=== PATIENT | male | born 1960 | race Caucasian/White ===

== ENCOUNTER 2018-05-02 18:01 | Emergency (ER) | payer OTHER ==
[~2018-05-02] VITALS: Ht 182.9 cm; Wt 81.6 kg
[2018-05-02 18:17] VITALS: BP 133/91
[2018-05-02] MEDS ORDERED: Tetanus/Diptheria/Pertussis Vaccine 0.5ml Syr IM ONE (18:30)
[2018-05-02] MEDS ORDERED: Lidocaine 1% Plain 30 ml INJ ONE (18:30)
[2018-05-02] MEDS ORDERED: Bacitracin Oint UD TOPIC ONE ×2 (18:30→20:29)
[2018-05-02] MEDS ORDERED: Ketorolac 30mg Inj IM ONE (18:30)
--- NOTE | 2018-05-02 18:34 | Emergency Room Report ---
History of Present Illness General Chief Complaint: Laceration Source: Patient Present Illness HPI 57-year-old male patient presents ER complaining of laceration on his left hand status post injury less than an hour ago. Reports that he was cleaning a "sprain" when it cut his left hand. Reports he is right-hand dominant. Reports bleeding well controlled with gauze at this time. Reports laceration on dorsum of left hand and middle finger and small laceration on dorsum of left hand near index finger. Reports does not know tetanus vaccination status. Denies taking any medications for pain. Denies fever, chest pain, shortness of breath. Allergies: Coded Allergies: No Known Allergies (Unverified , 05/02/18) Patient History Past Medical History: see triage record Reviewed Nursing Documentation: PMH: Agreed; PSxH: Agreed Nursing Documentation-PMH Past Medical History: No Stated History Review of Systems All Other Systems: negative except mentioned in HPI Physical Exam Vital Signs Date Time Temp Pulse Resp B/P (MAP) Pulse Ox O2 Delivery O2 Flow Rate FiO2 05/02/18 18:07 98.1 67 20 133/91 98 Room Air Sp02 EP Interpretation: reviewed, normal General Appearance: well appearing, no apparent distress, alert, GCS 15, non- toxic Head: normocephalic, atraumatic Eyes: bilateral eye normal inspection, bilateral eye PERRL ENT: hearing grossly normal, normal pharynx, no angioedema, normal voice, uvula midline, moist mucus membranes Neck: full range of motion Respiratory: lungs clear, normal breath sounds, no rhonchi, no respiratory distress, no accessory muscle use, no wheezing, speaking full sentences Cardiovascular #1: regular rate, rhythm, no edema Cardiovascular #2: 2+ radial (R), 2+ radial (L) Musculoskeletal: back normal, digits/nails normal, gait/station normal, normal range of motion, non-tender, other - NVI, cap refill < 2seconds Neurologic: alert, oriented x3, responsive, motor strength/tone normal, sensory intact Psychiatric: mood/affect normal Skin: laceration - dorsum of left hand, middle finger distal to MCP joint: 5 cm laceration, deep, active bleeding, no pulsatile bleeding, partial tendon rupture visualized, no surrounding erythema or edema; dorsum of left hand near MCP of the index finger: 2 cm superficial laceration noted, no active bleeding or drainage, no surrounding erythema or edema Medical Decision Making PA Attestation Dr. Man is my supervising Physician whom patient management has been discussed with. Diagnostic Impression: Primary Impression: Open fracture of phalanx of finger of left hand Additional Impressions: Laceration Injury of tendon of finger ER Course Pt presents to ED c/o laceration on dorsum of left hand at index finger and middle finger near MCP joint. DDX considered but are not limited to laceration, abrasion, contusion, cellulitis, sprain, strain, fracture, retained FB, tendon rupture. VITAL SIGNS are WNL, patient is afebrile ED INTERVENTIONS: x-ray shows fracture of the proximal phalanx of the left hand. Preliminary reading. Consider open fracture, will provide patient with IV Ancef while in the ER. Provided with TDap. Provided with pain medication. Contacted hand specialists Dr. Collin Suh who was gracious enough to consult on this case. See his note. Provided with morphine for pain. tendon and lacerations repaired by Dr. Suh. Bacitracin applied. Wounds cleaned and dressed. patient procedure well without complications. Patient' instructed to follow with Dr. Suh in one week for suture removal and follow-up care. Call to schedule appointment. Contact information provided. Patient splinted with Colles splint per Dr. Suh request. Checked by me afterwards with good alignment and neurovascularly intact. ER precautions given. follow up with primary care provider to discuss referral to paid search specialist finger fracture. DISCHARGE: Rx provided for Keflex Rx provided for Bactrim Rx provided for Bacitracin Rx provided for [place]. CURES reviewed. SE drowsiness, do not take prior to drinking, driving, operating heavy machinery. At this time pt is stable for d/c to home. Patient resting comfortably, in no acute distress, nontoxic appearing, talking without difficulty. Will provide with patient care instructions and any necessary prescriptions. Patient to take medication as instructed. Care plan and follow-up instructions provided. Work note provided to patient. Patient questions asked and answered. Patient instructed to follow-up with Dr. Suh for wound check and suture removal. ER precautions given. Patient instructed to return to ER immediately for any new or worsening of symptoms. - Please note that this Emergency Department Report was dictated using [employer] technology software, occasionally this can lead to erroneous entry secondary to interpretation by the dictation equipment. Other X-Ray Diagnostic Results Other X-Ray Diagnostic Results : X-Ray ordered: left hand # of Views/Limited Vs Complete: 3 View Indication: Pain EP Interpretation: Yes PA Xray: Interpretation reviewed, by supervising MD, and agrees with findings. Interpretation: no dislocation, no soft tissue swelling, other - fracture Impression: Other - nondisplaced fracture of proximal phalanx of the middle finger PA Scribe Text Dylan Chand PA-C Last Vital Signs Date Time Temp Pulse Resp B/P (MAP) Pulse Ox O2 Delivery O2 Flow Rate FiO2 05/02/18 18:17 98.1 20 133/91 98 Room Air 05/02/18 18:07 67 Status: improved Disposition: HOME, SELF-CARE Condition: Stable Scripts Hydrocodone Bit/Acetaminophen 5-325* (NORCO 5-325*) 1 Each Tablet 1 TAB ORAL Q6H PRN for For Pain, #10 TAB 0 Refills Prov: Carlos Chand.Loretta 05/02/18 Trimethoprim/Sulfamethoxazole 160/800* (BACTRIM DS TABLET*) 1 Each Tablet 1 TAB ORAL TWICE A DAY for 7 Days, #14 TAB Prov: Carlos Chand 05/02/18 Cephalexin* (KEFLEX*) 500 Mg Capsule 500 MG ORAL EVERY 12 HOURS, #14 CAP 0 Refills Prov: Carlos Chand 05/02/18 Bacitracin/Polymyxin B Sulfate (BACITRACIN-POLYMYXIN OINTMENT) 28.35 Gm Oint...g. 1 APPLIC TP BID, #28 GM Prov: Carlos Chand 05/02/18 Patient Instructions: Finger Fracture, Fsyp-iq-Hent, Laceration Care, Adult, Tendon Injury, Tendon Repair Additional Instructions: Patient instructed to follow-up with Dr. Suh in 7 days for wound check and suture removal. Call his office to schedule appointment. Take medications as directed. Keep wound clean and dry. Patient instructed to follow up with primary care provider and discuss further referral to orthopedics/physical therapy/pain management as needed for finger fracture. If unable to followup with PCP, followup with orthopedic urgent care in 5-7 days , call to schedule appointment. Patient instructed on RICE method: rest, ice, compression, elevation. Patient instructed to NWB. Take medications as directed. Do not drink, drive, or operate heavy machinery prior to taking [place] pain medication. Patient questions asked and answered. ER precautions given, patient instructed to return to ER immediately for any new or worsening of symptoms. [facility] [address] [address] [facility], [id number] [email or web address] Carlos Chand May 02, 2018 18:34
[2018-05-02] MEDS ORDERED: ceFAZolin 1gm/50ml Premix 50 ML IV ONE (18:45)
[2018-05-02] MEDS ORDERED: Lidocaine 1% 10mg/ml/Epi 0.005mg/ml 30ml vial INJ ONE (19:45)
[2018-05-02] MEDS ORDERED: Morphine Sulfate 2mg/ml Inj IVP ONE (19:45)
[2018-05-02] MEDS ORDERED: NORCO 5-325 TA1 EACH ORAL (20:20)
[2018-05-02] MEDS ORDERED: BACTRIM DS TAB1 EAC1 ORAL (20:20)
[2018-05-02] MEDS ORDERED: BACITRACIN-P28.35 GM TP (20:20)
[2018-05-02] MEDS ORDERED: CEPHALEXIN500 MG ORAL (20:20)
[2018-05-02 20:43] VITALS: BP 133/91
--- NOTE | 2018-05-03 11:46 | Diagnostic Imaging Report ---
Indication: left hand pain. Findings: 3 views of the left hand were obtained. There is acute fracture nondisplaced at the base of the third proximal phalange. There is soft tissue air at the base of the index finger. No radiopaque foreign body identified. IMPRESSION: Acute fracture base of the third proximal phalange.
--- NOTE | 2018-05-25 14:15 | Operative Note - Dictated ---
DATE OF OPERATION: 05/02/2018 PREOPERATIVE DIAGNOSIS: Multiple lacerations of the left dorsum of the hand with partial transection of the extensor tendon of the middle finger. POSTOPERATIVE DIAGNOSIS: Multiple lacerations of the left dorsum of the hand with partial transection of the extensor tendon of the middle finger. PROCEDURE: Repair of multiple lacerations of the left hand, repair of the extensor tendon of the middle finger. SURGEON: Collin Suh M.D. FINDINGS DURING THIS PROCEDURE: A 5 cm laceration of the left middle finger near the metacarpophalangeal joint, 2 cm laceration of the left index finger near the metacarpophalangeal joint along the dorsum of the hand, the middle finger laceration involves 50% transection of the extensor tendon of the digit. COMPLICATIONS: None. ESTIMATED BLOOD LOSS: Minimum. OPERATIVE PROCEDURE NOTE IN DETAIL: The patient was prepped and draped in the usual sterile fashion. A 1% lidocaine with epinephrine was used to inject around the site of surgical exploration and tendon repair as a local regional block. After sufficient time had been allowed for the epinephrine and the local anesthetic to take effect, both wounds were irrigated copiously using normal saline and then explored. Nonviable tissue was debrided and the ends of the cut tendon was visualized. The tendon was then repaired using 4-0 [place] degree sutures. Once this tendon was repaired, the laceration was repaired using 3-0 nylon interrupted vertical mattress sutures. Once this was closed, I turned my attention, explored the other 2 cm laceration near the metacarpophalangeal joint of the index finger. Once it was cleaned, a nonviable tissue debrided. It was found that the extensor tendon of the index finger was intact. This laceration was then also repaired using 3-0 nylon vertical mattress sutures. At the end of the procedure, antibiotic ointment was placed along the suture line. The patient was placed in a volar splint to protect the extensor tendon repair. The patient tolerated the procedure well. He will follow up with me in the office for wound check and suture removal. Collin Suh M.D. DR: RAVI/KRISTY JOB#: [id number] CC: LYNN
--- NOTE | 2018-05-25 15:00 | Consultation ---
DATE OF CONSULTATION: 05/02/2018 CONSULTING PHYSICIAN: Collin Suh M.D. REASON FOR CONSULTATION: Complex lacerations involving the tendon of the left hand. HISTORY OF PRESENT ILLNESS: The patient is a 57-year-old male, who presented to the ER at [facility] complaining of laceration at his left hand status after injuring it. He is right hand dominant. After the ER examined his lacerations to his left hand, they determined that it had involved the tendon and called a Plastic Surgery consult. PAST MEDICAL HISTORY: None. PAST SURGICAL HISTORY: None. ALLERGIES TO MEDICATIONS: No known drug allergies. CURRENT MEDICATIONS: None. REVIEW OF SYSTEMS: Chest pain, discomfort, and bleeding from the left hand. Otherwise, remainder of the review of system is negative. PHYSICAL EXAMINATION: VITAL SIGNS: Temperature 98.1, pulse 67, respiratory rate 20, blood pressure 133/91, and pulse oximetry 98% on room air. GENERAL: The patient is hemodynamically stable. Appears comfortable, resting on the stretcher, in no acute distress. HEENT: Head is normocephalic, atraumatic. Pupils are equal, round, reactive to light. Extraocular motions intact and symmetrical bilaterally. External nose, ears, mouth, and oral cavity all appeared normal. NECK: Supple. Full range of motion. No JVD. No bruits. No palpable masses. RESPIRATORY: Lungs are clear to auscultations. No wheezes, rales, or crackles. No rhonchi. CARDIOVASCULAR: Normal S1, S2. No murmurs, rubs, or gallops. ABDOMEN: Soft, nontender, nondistended. No guarding, rebound, or rigidity. EXTREMITIES: Full range of motion. No gross deformities except in the left hand where he has multiple lacerations. SKIN: He has a laceration in the dorsum of his left hand. He has a 5 cm deep laceration involving the middle finger just distal to the metacarpophalangeal joint with 50% transection of the extensor tendon. No pulsatile bleeding. Also has a 2 cm laceration on the dorsum of his left hand near the metacarpophalangeal joint of the index finger. This laceration, there appears to be no tendon injury. ASSESSMENT AND PLAN: The patient is a 57-year-old man, who injured his left hand. He has laceration of his extensor tendon of the middle finger and a simple skin laceration of his left index finger. These require surgical repair. Risks, benefits, and alternatives were discussed with him. He understands and agrees to proceed and have his wound explored plain and repaired. Arrangements will be made. Collin Suh M.D. DR: CAT JOB#: [id number] CC: LYNN
== END 2018-05-02 20:44 | disposition home or self-care (01) ==
LOC: EMR 18:35
DX: S62.643B Nondisplaced fracture of proximal phalanx of left middle finger, initial encounter for open fracture (principal); S66.323A Laceration of extensor muscle, fascia and tendon of left middle finger at wrist and hand level, initial encounter; S61.211A Laceration without foreign body of left index finger without damage to nail, initial encounter; W45.8XXA Other foreign body or object entering through skin, initial encounter; Y92.9 Unspecified place or not applicable; Z23 Encounter for immunization
CPT/HCPCS: 12041; 26418; 73130; 90471; 90715; 96365; 96372; 96375; 99284; J0690; J1885; J2001; J2270